=== PATIENT | female | born 1940 | race Caucasian/White ===

== ENCOUNTER → 2016-07-23 | Outpatient (CLI) | payer OTHER ==
[2016-07-23 12:01] LABS: Basophils # (auto) 0.1 uL; Basophils % (auto) 0.7 % (0.0-2.0); Eosinophils # (auto) 0.3 uL; Eosinophils % (auto) 3.1 % (0.0-7.0); Hematocrit 45.7 % (36.0-46.0); Hemoglobin 15.8 g/dL (12.2-16.2); Lymphocytes # (auto) 2.1 uL; Lymphocytes % (auto) 24.2 % (10.0-50.0); Mean Corpuscular Hemoglobin 31.9 pg (28.0-32.0); Mean Corpuscular Hgb Conc. 34.6 g/dL (32.0-36.0); Mean Platelet Volume 8.8 fL (7.4-10.4); Monocytes # (auto) 0.6 uL; Monocytes % (auto) 7.1 % (0.0-12.0); Neutrophils # (auto) 5.5 uL; Neutrophils % (auto) 64.9 % (37.0-80.0); Platelet Count (auto) 272 10^3/uL (140-450); Red Cell Distribution Width 15.7 % (11.6-16.0); White Blood Cell 8.5 10^3/uL (4.4-10.8)
[2016-07-23 12:59] LABS: Albumin 4.1 g/dL (3.4-5.0); BUN/Creatinine Ratio 13.2; Calcium 9.1 mg/dL (8.5-10.1); Potassium 3.1 mmol/L (3.5-5.1)
== END | disposition home or self-care (01) ==
LOC: LAB 11:38
PROVIDERS: ATTEND Internal Medicine
DX: Z00.00 Encounter for general adult medical examination without abnormal findings (principal)
CPT/HCPCS: 36415; 80053; 80061; 83036; 84439; 84443; 84481; 85025

== ENCOUNTER 2016-09-13 05:35 | Emergency (ER) | payer OTHER ==
[~2016-09-13] VITALS: Ht 172.7 cm; Wt 72.6 kg
[2016-09-13 07:20] VITALS: BP 198/98
[2016-09-13] MEDS ORDERED: traMADol HCL 50 MG TAB PO ONE (07:30)
== END 2016-09-13 07:49 | disposition home or self-care (01) ==
LOC: ER 05:35
DX: H66.92 Otitis media, unspecified, left ear (principal); G89.29 Other chronic pain; M54.9 Dorsalgia, unspecified; Z88.6 Allergy status to analgesic agent; Z88.5 Allergy status to narcotic agent

== ENCOUNTER 2016-11-06 06:00 | Inpatient (IN) | payer OTHER ==
[~2016-11-06] VITALS: Ht 172.7 cm; Wt 93.0 kg
[2016-11-06 07:27] LABS: INR 0.95 (0.9-1.15); Partial Thromboplastin Time 28.2 sec (22.64-33.71); Prothrombin Time 10.4 sec (9.37-12.3)
[2016-11-06 07:36] LABS: Albumin 3.7 g/dL (3.4-5.0); BUN/Creatinine Ratio 12.2; Bilirubin, Total 0.8 mg/dL (0.2-1.0); Calcium 9.6 mg/dL (8.5-10.1); Potassium 3.6 mmol/L (3.5-5.1)
[2016-11-06 07:52] LABS: Basophils # (auto) 0 uL; Basophils % (auto) 0.3 % (0.0-2.0); Eosinophils # (auto) 0.2 uL; Eosinophils % (auto) 1.4 % (0.0-7.0); Hemoglobin 14.9 g/dL (12.2-16.2); Lymphocytes # (auto) 1.6 uL; Lymphocytes % (auto) 13.3 % (10.0-50.0); Mean Corpuscular Hemoglobin 32.5 pg (28.0-32.0); Mean Corpuscular Hgb Conc. 33.9 g/dL (32.0-36.0); Mean Corpuscular Volume 95.9 fL (80.0-100.0); Mean Platelet Volume 9.3 fL (7.4-10.4); Monocytes # (auto) 0.7 uL; Monocytes % (auto) 5.8 % (0.0-12.0); Neutrophils # (auto) 9.8 uL; Neutrophils % (auto) 79.2 % (37.0-80.0); Platelet Count (auto) 286 10^3/uL (140-450); Red Cell Distribution Width 13.4 % (11.6-16.0); White Blood Cell 12.3 10^3/uL (4.4-10.8)
[2016-11-06] MEDS ORDERED: ONDANSETRON HCL 4 MG/2 ML VIAL IV ONE (08:30)
[2016-11-06] MEDS ORDERED: PANTOPRAZOLE SODIUM 40 MG/10 ML VIAL IV ONE ×2 (08:38→08:45)
[2016-11-06 08:59] LABS: Urine Bilirubin Negative (Negative); Urine Blood Negative /uL (Negative); Urine Color Yellow (Yellow); Urine Glucose Normal (Normal); Urine Mucus FEW (None Seen); Urine RBC 1 /hpf (0 - 4); Urine Squamous Epithelial Cell FEW /hpf (<5); Urine Urobilinogen Normal (Negative); Urine pH 5.5 (5.0-8.0)
[2016-11-06 09:11] LABS: Urine Ketone 2+ (Negative); Urine Nitrite POSITIVE (Negative)
[2016-11-06] MEDS ORDERED: cefTRIAXone 1GM/50ML D5W 50 ML IV ONE (09:45)
[2016-11-06] MEDS ORDERED: metroNIDAZOLE 500MG/100ML 100 ML IV ONE (09:45)
[2016-11-06] MEDS ORDERED: FAMOTIDINE 20 MG TAB PO SCH (10:00)
[2016-11-06] MEDS ORDERED: ONDANSETRON HCL 4 MG/2 ML VIAL IV PRN (10:00)
[2016-11-06] MEDS ORDERED: diphenhdrAMINE HCL 25 MG CAP PO PRN (10:00)
[2016-11-06] MEDS: MULTIPLE VITAMIN TAB PO SCH (10:00)
[2016-11-06] MEDS ORDERED: DOCUSATE SOD 100 MG CAP PO PRN (10:00)
[2016-11-06] MEDS ORDERED: TRIAZOLAM 0.25 MG PO SCH ×2 (10:00→22:00)
[2016-11-06] MEDS ORDERED: MORPHINE SULF INJ 2 MG/ML SYRINGE 1ML IV PRN (10:00)
[2016-11-06] MEDS ORDERED: LEVOTHYROXINE SODIUM 100 MCG TAB PO ONE (10:00)
[2016-11-06] MEDS ORDERED: TEMAZEPAM 15 MG CAP PO PRN (10:00)
[2016-11-06] MEDS ORDERED: HYDROcodone-ACET 5/325MG TAB PO PRN ×3 (10:00→16:41)
[2016-11-06] MEDS: SODIUM CHLORIDE 0.9% 1,000 ML IV SCH (10:10)
[2016-11-06] MEDS ORDERED: LIDOCAINE VISCOUS 2% 15ML UD ONE (10:53)
[2016-11-06] MEDS ORDERED: NALOXONE HCL 0.4 MG/ML VIAL ONE (10:53)
[2016-11-06] MEDS ORDERED: FLUMAZENIL 0.1 MG/ML INJ 10ML MDV IV ONE (10:53)
[2016-11-06] MEDS ORDERED: diphenhdrAMINE HCL 50 MG/1 ML VL ONE (10:54)
[2016-11-06] MEDS ORDERED: SODIUM CHLORIDE LOCK 10 ML ONE (10:55)
[2016-11-06] MEDS: MIDAZOLAM HCL 5 MG/ML-1ML VIAL ONE ×3 (11:08→11:18)
[2016-11-06] MEDS: fentaNYL CITRATE 100 MCG/2 ML VL ONE ×3 (11:08→11:18)
[2016-11-06] MEDS ORDERED: metroNIDAZOLE 500MG/100ML 100 ML IV SCH (14:00)
[2016-11-06 14:24] LABS: Hematocrit 41.5 % (36.0-46.0)
[2016-11-06 14:46] LABS: Lactic Acid w/Reflex 3.1 mmol/L (0.4-2.0)
[2016-11-06 14:49] LABS: REFLEX LACTIC ACID YES OR NO NO
[2016-11-06 17:11] VITALS: BP 170/85
[2016-11-06] MEDS ORDERED: TRIA0.25 PO (17:52)
[2016-11-06] MEDS ORDERED: LEVO100T8 PO (17:52)
[2016-11-06 20:00] VITALS: BP 159/72
[2016-11-06 20:34] LABS: Hemoglobin 12.9 g/dL (12.2-16.2)
[2016-11-06 21:30] VITALS: BP 159/72
[2016-11-06] MEDS: ACETAMINOPHEN 325 MG TAB PO PRN ×2 (21:30→22:48)
[2016-11-06] MEDS: PANTOPRAZOLE 40 MG TAB PO SCH (22:46)
[2016-11-07] MEDS: SODIUM CHLORIDE 0.9% 1,000 ML IV SCH (02:19)
[2016-11-07 05:00] VITALS: BP 142/66
[2016-11-07] MEDS: ACETAMINOPHEN 325 MG TAB PO PRN (05:32)
[2016-11-07 06:37] LABS: Basophils # (auto) 0 uL; Basophils % (auto) 0.2 % (0.0-2.0); CONDITION Y; Eosinophils # (auto) 0.3 uL; Eosinophils % (auto) 2.6 % (0.0-7.0); Hematocrit 37.5 % (36.0-46.0); Lymphocytes # (auto) 1.7 uL; Mean Corpuscular Hemoglobin 33.2 pg (28.0-32.0); Mean Corpuscular Hgb Conc. 34.7 g/dL (32.0-36.0); Mean Corpuscular Volume 95.8 fL (80.0-100.0); Monocytes # (auto) 0.9 uL; Monocytes % (auto) 8.8 % (0.0-12.0); Neutrophils # (auto) 7.7 uL; Neutrophils % (auto) 72.4 % (37.0-80.0); Platelet Count (auto) 250 10^3/uL (140-450); Red Cell Distribution Width 14.6 % (11.6-16.0); White Blood Cell 10.6 10^3/uL (4.4-10.8)
[2016-11-07 06:49] LABS: Calcium 8.6 mg/dL (8.5-10.1); Potassium 3.1 mmol/L (3.5-5.1)
[2016-11-07 06:51] LABS: Albumin 3.1 g/dL (3.4-5.0); BUN/Creatinine Ratio 14.4
[2016-11-07 06:58] LABS: Bilirubin, Total 1.5 mg/dL (0.2-1.0); Total Protein 6.6 g/dL (6.4-8.2)
[2016-11-07] MEDS ORDERED: LEVOTHYROXINE SODIUM 100 MCG TAB PO SCH (07:00)
[2016-11-07 08:00] VITALS: BP 139/65
[2016-11-07 09:00] VITALS: BP 139/65
[2016-11-07] MEDS ORDERED: cefTRIAXone 1GM/50ML D5W 50 ML IV SCH (09:00)
[2016-11-07] MEDS: MULTIPLE VITAMIN TAB PO SCH (09:43)
[2016-11-07] MEDS: PANTOPRAZOLE 40 MG TAB PO SCH (09:43)
[2016-11-07 13:00] VITALS: BP 136/98
[2016-11-07] MEDS ORDERED: POTASSIUM CHL 10 Meq TABLET PO ONE (14:15)
[2016-11-07 16:13] VITALS: BP 136/98
== END 2016-11-07 20:09 | disposition home or self-care (01) | DRG 872 ==
LOC: ER 06:00 → OVERFLOW 06:01 → EAST 12:19 → WEST WING 16:30
PROVIDERS: ADMIT Internal Medicine; ATTEND Internal Medicine
PROC: BD11ZZZ Fluoroscopy of Esophagus (ICD-10-PCS; 2016-11-06)
PROC: 0DJ08ZZ Inspection of Upper Intestinal Tract, Via Natural or Artificial Opening Endoscopic (ICD-10-PCS; principal; 2016-11-06 11:05)
DX: A41.9 Sepsis, unspecified organism (principal); N39.0 Urinary tract infection, site not specified; K92.0 Hematemesis; K22.10 Ulcer of esophagus without bleeding; E44.0 Moderate protein-calorie malnutrition; T18.108A Unspecified foreign body in esophagus causing other injury, initial encounter; N18.2 Chronic kidney disease, stage 2 (mild); K29.80 Duodenitis without bleeding; K29.70 Gastritis, unspecified, without bleeding; K22.2 Esophageal obstruction; E03.9 Hypothyroidism, unspecified; G89.29 Other chronic pain; Z68.31 Body mass index [BMI] 31.0-31.9, adult; Z90.49 Acquired absence of other specified parts of digestive tract; Z90.710 Acquired absence of both cervix and uterus; Z88.8 Allergy status to other drugs, medicaments and biological substances
CPT/HCPCS: 36415; 43235; 70490; 71010; 74220; 80053; 81001; 83036; 83605; 85014; 85018; 85025; 85610; 85730; 87040; 87086; 87088; 87186; 93005; 96365; 96368; 96375; C9113; J0696; J2250; J2405; J3490

== ENCOUNTER 2017-04-11 02:36 | Emergency (ER) | payer MEDICARE, OTHER ==
[~2017-04-11] VITALS: Ht 170.2 cm; Wt 88.5 kg
[~2017-04-11 02:36] MED LIST: LEVO100T8 PO; TRIA0.25 PO
[2017-04-11 02:43] VITALS: BP 176/94
== END 2017-04-11 05:12 | disposition left against medical advice (07) ==
LOC: ER 02:39
DX: H92.01 Otalgia, right ear (principal); Z53.21 Procedure and treatment not carried out due to patient leaving prior to being seen by health care provider